=== PATIENT | male | born 1955 ===

== ENCOUNTER 2017-08-14 17:51 | Emergency (ER) | payer SELFPAY ==
[2017-08-14 20:32] LABS: URINE BILIRUBIN NEGATIVE (NEGATIVE); URINE BLOOD NEGATIVE (NEGATIVE); URINE CLARITY Clear (Clear); URINE COLOR Yellow (YELLOW); URINE GLUCOSE (UA) NORMAL (Normal); URINE LEUKOCYTE ESTERASE NEG Leu/uL (Negative); URINE NITRATE NEGATIVE (NEGATIVE); URINE PROTEIN NEGATIVE (NEGATIVE); URINE UROBILINOGEN NORMAL mg/dL (0.2-1.0)
[2017-08-14 20:37] LABS: BASO # 0.1 K/uL (0.0-0.2); BASO % 1.3 % (0.0-2.0); EOS # 0.1 K/uL (0.0-0.7); EOS % 1.3 % (0.0-4.0); LYMPH # 3.2 K/uL (1.0-4.3); LYMPH % 36.5 % (20.0-40.0); MEAN CELL VOLUME 90.2 fL (80.0-94.0); MEAN CORPUSCULAR HEMOGLOBIN 31.6 pg (27.0-31.0); MEAN CORPUSCULAR HGB CONC 35.1 g/dL (33.0-37.0); MEAN PLATELET VOLUME 10.6 fL (7.2-11.7); MONO # 0.7 K/uL (0.0-0.8); MONO % 7.6 % (0.0-10.0); NEUT # 4.7 K/uL (1.8-7.0); NEUT % 53.3 % (50.0-75.0); NRBC % 0.1 % (0.0-2.0); RBC 4.75 Mil/uL (4.40-5.90); RED CELL DISTRIBUTION WIDTH 14.4 % (11.5-14.5); WHITE BLOOD COUNT 8.8 K/uL (4.8-10.8)
[2017-08-14 20:49] LABS: ALB/GLOB RATIO 1.3 (1.0-2.1); ALBUMIN 4.3 g/dL (3.5-5.0); ALT/SGPT 42 U/L (21-72); AST/SGOT 34 U/L (17-59); BLOOD UREA NITROGEN 19 mg/dL (9-20); GFR AFRICAN-AMERICAN > 60; GFR NON-AFRICAN AMERICAN > 60; LIPASE 133 U/L (23-300)
--- NOTE | 2017-08-14 21:14 | C.PDOC ---
History Of Present Illness 62 year old male presents to the ED for evaluation of RLQ abd pain since this morning. Pain is described as cramping. He states that pain is exacerbated by bending over. He denies nausea or vomiting. Patient states that he eats mostly rice, beans, and tortilla. Time Seen by Provider: 08/14/17 19:50 Chief Complaint (Nursing): Abdominal Pain History Per: Patient History/Exam Limitations: no limitations Onset/Duration Of Symptoms: Hrs Current Symptoms Are (Timing): Still Present Location Of Pain/Discomfort: RLQ Quality Of Discomfort: Cramping Associated Symptoms: denies: Nausea, Vomiting, Diarrhea Recent travel outside of the [place]: No Past Medical History Reviewed: Historical Data, Nursing Documentation, Vital Signs Vital Signs: Last Vital Signs Temp 98 F 08/14/17 18:30 Pulse 61 08/14/17 18:30 Resp 18 08/14/17 18:30 BP 174/96 H 08/14/17 18:30 Pulse Ox 98 08/14/17 21:14 Family History: States: No Known Family Hx - Social History Hx Alcohol Use: Yes Hx Substance Use: No - Immunization History Hx Tetanus Toxoid Vaccination: No Hx Influenza Vaccination: No Hx Pneumococcal Vaccination: No Review Of Systems Except As Marked, All Systems Reviewed And Found Negative. Constitutional: Negative for: Fever, Chills ENT: Negative for: Ear Pain, Throat Pain Cardiovascular: Negative for: Chest Pain Respiratory: Negative for: Cough, Shortness of Breath Gastrointestinal: Positive for: Abdominal Pain. Negative for: Nausea, Vomiting , Diarrhea Skin: Negative for: Rash Neurological: Negative for: Headache Physical Exam - Physical Exam Appears: Well, Non-toxic, No Acute Distress Skin: Normal Color, Warm, Dry Head: Atraumatic, Normacephalic Eye(s): bilateral: Normal Inspection, PERRL, EOMI Oral Mucosa: Moist Throat: Normal Neck: Normal, Normal ROM, Supple Chest: Symmetrical Cardiovascular: Rhythm Regular (Rate Regular ) Respiratory: Normal Breath Sounds, No Rales, No Rhonchi, No Wheezing Gastrointestinal/Abdominal: Soft, No Tenderness (No right lower quadrant tenderness) Rectal: Hemorrhoids (Right abdomen dull to percussion, Negative hopping Rovsing' s ) Back: Normal Inspection Extremity: Normal ROM, No Deformity Extremity: Bilateral: Atraumatic Neurological/Psych: Oriented x3, Normal Speech Gait: Steady ED Course And Treatment - Laboratory Results Result Diagrams: 08/14/17 20:34 08/14/17 20:34 Lab Interpretation: Normal (ua neg.) O2 Sat by Pulse Oximetry: 98 - Radiology CXR: Interpreted by Me CXR Interpretation: Yes: No Acute Disease - Other Rad abd x 2 X-Ray: Interpreted by Me (+FOS) Progress Note: Will order CMP, lipase, CBC, UA, and abd xray. Reevaluation Time: 21:12 Reassessment Condition: Unchanged Medical Decision Making Medical Decision Making: LOW susp of AP more likely constipation with ++ stool RLQ UA neg argues against ureteral stone Disposition Doctor Will See Patient In The: Office Counseled Patient/Family Regarding: Studies Performed, Diagnosis - Disposition Referrals: [facility] [Outside] Disposition: HOME/ ROUTINE Disposition Time: 21:13 Condition: GOOD Additional Instructions: rufino un purgante ahora (kj botella de Citrato de Magnesio) y re-evalua schneider molestia del abdomen despues de usar el candy 2-3 veces sigue en nuestro clinica Familiar (gratis) yesika necessario Instructions: Constipation in Adults Forms: [facility] (Icelandic) Print Language: COMORAN - Clinical Impression Clinical Impression: Abdominal colic - Scribe Statement The provider has reviewed the documentation as recorded by the Scribe (José Miguel Tadeo) Provider Attestation: All medical record entries made by the Scribe were at my direction and personally dictated by me. I have reviewed the chart and agree that the record accurately reflects my personal performance of the history, physical exam, medical decision making, and the department course for this patient. I have also personally directed, reviewed, and agree with the discharge instructions and disposition.
[2017-08-15 00:06] VITALS: BP 126/74; PULSE 68; RESP 20; TEMP 98.3; O2SAT 96
--- NOTE | 2017-08-15 09:03 | RAD ---
Abdomen four views History: Abdominal pain. Comparison: None available. Findings: Biapical pleural thickening with upper lobe granulomatous changes. Diffuse increased interstitial lung markings. Tortuous aorta. Heart size within normal limits. Degenerative changes in the spine. Moderate fecal retention in the colon. No evidence of gross bowel obstruction. Degenerative changes bilateral hips. Impression: Moderate fecal retention.
== END 2017-08-14 21:30 | disposition home or self-care (01) ==
LOC: C.ER 17:51
DX: R10.84 Generalized abdominal pain (principal)

== ENCOUNTER 2017-08-18 10:26 | Emergency (ER) | payer OTHER ==
[2017-08-18 10:46] VITALS: O2SAT 98
[2017-08-18 11:10] LABS: URINE BILIRUBIN NEGATIVE (NEGATIVE); URINE BLOOD NEGATIVE (NEGATIVE); URINE CLARITY Clear (Clear); URINE COLOR Yellow (YELLOW); URINE GLUCOSE (UA) NORMAL (Normal); URINE LEUKOCYTE ESTERASE NEG Leu/uL (Negative); URINE NITRATE NEGATIVE (NEGATIVE); URINE PROTEIN NEGATIVE (NEGATIVE); URINE UROBILINOGEN NORMAL mg/dL (0.2-1.0)
[2017-08-18] MEDS ORDERED: Sodium Chloride 0.9% 1,000 ML IV ONE (11:51)
[2017-08-18] MEDS ORDERED: Sodium Chloride 0.9% 1,000 ML ONE (12:03)
[2017-08-18 12:06] LABS: BASO # 0.1 K/uL (0.0-0.2); EOS % 0.7 % (0.0-4.0); HEMOGLOBIN 14.3 g/dL (12.0-18.0); LYMPH % 29.3 % (20.0-40.0); MEAN CELL VOLUME 91.2 fL (80.0-94.0); MEAN CORPUSCULAR HEMOGLOBIN 32.1 pg (27.0-31.0); MEAN CORPUSCULAR HGB CONC 35.3 g/dL (33.0-37.0); MONO # 0.5 K/uL (0.0-0.8); NEUT # 4.1 K/uL (1.8-7.0); NRBC % 0.1 % (0.0-2.0); RBC 4.46 Mil/uL (4.40-5.90); RED CELL DISTRIBUTION WIDTH 14.9 % (11.5-14.5); WHITE BLOOD COUNT 6.7 K/uL (4.8-10.8)
[2017-08-18 12:22] LABS: ALB/GLOB RATIO 1.4 (1.0-2.1); ALBUMIN 3.8 g/dL (3.5-5.0); ALT/SGPT 34 U/L (21-72); AST/SGOT 36 U/L (17-59); BLOOD UREA NITROGEN 18 mg/dL (9-20); CALCIUM 8.8 mg/dl (8.6-10.4); GFR AFRICAN-AMERICAN > 60; GFR NON-AFRICAN AMERICAN > 60; LIPASE 117 U/L (23-300)
--- NOTE | 2017-08-18 12:36 | C.PDOC ---
History Of Present Illness 62-year-old male, presents to the emergency department with complaints of right lower quadrant abdominal pain over the past three days. Pain is worsened with movement and when lifting his right leg. Patient seen in ED for same complaint three days ago and had normal workup. Patient reports symptoms persisted, resulting in him coming to ED for evaluation. Time Seen by Provider: 08/18/17 11:39 Chief Complaint (Nursing): Abdominal Pain History Per: Patient History/Exam Limitations: no limitations Onset/Duration Of Symptoms: Days Current Symptoms Are (Timing): Still Present Severity: Moderate Location Of Pain/Discomfort: RLQ Past Medical History Reviewed: Historical Data, Nursing Documentation, Vital Signs Vital Signs: Last Vital Signs Temp 97.8 F 08/18/17 15:54 Pulse 60 08/18/17 15:54 Resp 18 08/18/17 15:54 BP 146/91 H 08/18/17 15:54 Pulse Ox 98 08/18/17 15:54 Family History: States: No Known Family Hx - Social History Hx Alcohol Use: Yes Hx Substance Use: No - Immunization History Hx Tetanus Toxoid Vaccination: No Hx Influenza Vaccination: No Hx Pneumococcal Vaccination: No Review Of Systems Constitutional: Negative for: Fever, Chills Cardiovascular: Negative for: Chest Pain Respiratory: Negative for: Shortness of Breath Gastrointestinal: Positive for: Abdominal Pain. Negative for: Nausea, Vomiting , Diarrhea Genitourinary: Negative for: Dysuria, Frequency, Hematuria Physical Exam - Physical Exam Appears: Well, Non-toxic, No Acute Distress Skin: Normal Color, Warm, Dry, No Diaphoretic, No Rash Head: Atraumatic, Normacephalic Eye(s): bilateral: Normal Inspection, PERRL, EOMI Nose: Normal Oral Mucosa: Moist Throat: No Erythema, No Exudate Neck: Normal ROM, Supple Chest: Symmetrical, No Tenderness Cardiovascular: Rhythm Regular, No Friction Rub, No Murmur Respiratory: Normal Breath Sounds, No Accessory Muscle Use Gastrointestinal/Abdominal: Bowel Sounds (active), Soft, Tenderness (RLQ), No Guarding, No Rebound Back: Normal Inspection, No CVA Tenderness, No Paraspinal Tenderness Extremity: Normal ROM, No Deformity, No Swelling Neurological/Psych: Oriented x3, Normal Speech, Normal Motor Gait: Steady ED Course And Treatment - Laboratory Results Result Diagrams: 08/18/17 11:59 08/18/17 11:59 O2 Sat by Pulse Oximetry: 98 (RA) Pulse Ox Interpretation: Normal Medical Decision Making Medical Decision Making: Plan: * CT Abd/Pel * Pepcid, Morphine, Zofran, IVF * Reassess and Disposition On re-exam, the patient reports improvement of symptoms. Lungs are CTA, heart is RRR, abdomen is soft, non-tender and tolerating PO well. Ambulatory in the ED with steady gait. Follow up with the medical doctor within 1-2 days. Return if worsened. Disposition - Disposition Referrals: [facility] [Outside] Disposition: HOME/ ROUTINE Disposition Time: 15:32 Condition: IMPROVED Additional Instructions: Follow up with the medical doctor within 1-2 days. Return if worsened. Prescriptions: Famotidine [Pepcid] 20 mg PO BID #20 tab Naproxen [Naprosyn] 500 mg PO BID #20 tab Instructions: Gallstones Forms: [employer] (Namibian) Print Language: [place] - POA Present On Arrival: None - Clinical Impression Clinical Impression: Abdominal pain, Cholelithiasis - Scribe Statement The provider has reviewed the documentation as recorded by the Scribe (Kim Hicks) All medical record entries made by the Scribe were at my direction and personally dictated by me. I have reviewed the chart and agree that the record accurately reflects my personal performance of the history, physical exam, medical decision making, and the department course for this patient. I have also personally directed, reviewed, and agree with the discharge instructions and disposition.
[2017-08-18 13:13] VITALS: RESP 18
[2017-08-18] MEDS ORDERED: Iodixanol 320 MG/ML 100 ML BOTTLE IV ONE (13:46)
--- NOTE | 2017-08-18 15:19 | CT ---
PROCEDURE: CT scan of the abdomen and pelvis dated 08/18/2017. HISTORY: Right lower quadrant abdominal pain. COMPARISON: No prior study available for comparison. TECHNIQUE: Contiguous helical/transaxial images of the abdomen and pelvis. Oral contrast was administered. No IV contrast given. . Sagittal and coronal Sagittal reformats generated. Radiation dose: Total exam DLP = 381.[address] exam was performed using one or more of the following dose reduction techniques: Automated exposure control, adjustment of the mA and/or kV according to patient size, and/or use of iterative reconstruction technique. FINDINGS: LOWER THORAX: Heart appears mildly enlarged. No significant pericardial effusion. Mild atelectasis and scarring changes both lung bases including the lingular and middle lobe regions. No effusion or basilar pneumothorax. LIVER: The liver exhibits relatively normal size measuring approximately 14.2 cm in CC dimension. No obvious hepatic mass collection or calcification. Minor diffuse fatty hepatic infiltration. Portal and splenic veins are opacified. . GALLBLADDER AND BILE DUCTS: Cholelithiasis. PANCREAS: Pancreas appears slightly atrophic and fatty replaced. No evidence of pancreatic masses, collections or calcifications. SPLEEN: Spleen exhibits normal size and attenuation pattern without mass collection or calcification. ADRENALS: There is a vague small approximately 8 mm low-attenuation focus which appears to arise from the mid lateral limb left adrenal gland with Hounsfield units just in negative digits that may represent a small adenoma. Followup CT scan at interval recommended to assess stability KIDNEYS AND URETERS: Kidneys demonstrate symmetric nephrograms. No evidence of nephrolithiasis or hydronephrosis. BLADDER: The urinary bladder is physiologically distended. No evidence of intraluminal urinary bladder calculi. REPRODUCTIVE: Prostate gland measures approximately 4.3 cm in transverse dimension. Prostatic calcifications are present. APPENDIX: Normal of partially debris and air filled appendix best seen on axial image number [id number]. No periappendiceal inflammatory changes. BOWEL: Evaluation of the bowel is limited due to the lack of oral contrast material. Stomach is incompletely distended which presumably accounts for thick-walled appearance. Gastritis or other intrinsic/ invasive wall lesion cannot be excluded. Visualized loops of small bowel exhibit normal contour and caliber. No evidence of acute mechanical small bowel obstruction. Note made of fecalized appearing content within multiple loops of small bowel suggesting stasis. Moderate amount of stool seen within the cecum and at ascending colon suggesting mild fecal retention/ constipation. No definitive mural wall thickening. PERITONEUM: Unremarkable. No fluid collection. No free air. LYMPH NODES: Unremarkable. No enlarged lymph nodes. VASCULATURE: Unremarkable. No aortic aneurysm. BONES: Mild multilevel degenerative spondylosis of the lower thoracic and lumbar spine. OTHER FINDINGS: None. IMPRESSION: Cholelithiasis. No evidence of nephrolithiasis or hydronephrosis. No evidence of acute appendicitis. Findings suggest mild fecal retention with fecalized content in the small bowel as well. Suspect small left adrenal adenoma. Followup CT scan at interval recommended to assess stability.
[2017-08-18 15:56] VITALS: BP 146/91; PULSE 60; TEMP 97.8
== END 2017-08-18 16:06 | disposition home or self-care (01) ==
LOC: C.ER 10:26
DX: K80.20 Calculus of gallbladder without cholecystitis without obstruction (principal); R10.31 Right lower quadrant pain
CPT/HCPCS: 74177; 80053; 81001; 83690; 85025; 96361; 96374; 96375; 99285; J1885; J2270; J2405; J7040; Q9967